=== PATIENT | female | born 1995 | race Caucasian/White ===

== ENCOUNTER 2018-11-05 11:11 | Inpatient (IN) | payer BC ==
[~2018-11-05] VITALS: Ht 162.6 cm; Wt 89.4 kg
[2018-11-05] MEDS ORDERED: OLAN5TAB2 PO (11:19)
[2018-11-05] MEDS ORDERED: HALO5TAB2 PO (11:19)
[2018-11-05] MEDS ORDERED: ESCI10TA PO (11:19)
[2018-11-05] MEDS ORDERED: CLON-570 PO (11:19)
[2018-11-05] MEDS ORDERED: ACET-2247 PO (11:19)
[2018-11-05] MEDS ORDERED: LORA0.5T2 PO (11:19)
[2018-11-05] MEDS ORDERED: ZOLP10TA7 PO (11:19)
[2018-11-05] MEDS ORDERED: SODIUM CHLORIDE 0.9% 1,000 ML IV ONE ×3 (11:26→20:15)
[2018-11-05 12:20] LABS: GLUCOSE, URINE (UA) NEGATIVE (NEGATIVE); KETONES,URINE >=80 mg/dL (NEGATIVE); LEUKOCYTE ESTERASE ,URINE NEGATIVE (NEGATIVE); NITRATE,URINE NEGATIVE (NEGATIVE); PH,URINE 5.5 (5.0-8.0); PROTEIN,URINE POS 1+ (NEGATIVE)
[2018-11-05 12:48] LABS: APPEARANCE,URINE HAZY (CLEAR); BILIRUBIN,URINE PRELIM. POSITIVE (NEGATIVE); OCCULT BLOOD,URINE SMALL (NEGATIVE)
[2018-11-05 12:49] LABS: BACTERIA,URINE None Seen /HPF (None Seen); SQUAMOUS EPITHELIAL CELL,UR Few /LPF (None Seen); WBC,URINE 0-2 /HPF (0-5)
[2018-11-05] MEDS ORDERED: LORazepam 2 MG/ML VIAL IM ONE (14:30)
[2018-11-05 15:06] LABS: BASOPHILS % (AUTO) 0.6 % (0.0-2.0); EOSINOPHILS % (AUTO) 0.2 % (1.0-6.0); HEMATOCRIT 42.4 % (36-46); HEMOGLOBIN 14.2 g/dL (12.0-16.0); LYMPHOCYTES # (AUTO) 1.5 K/uL (1.0-4.8); LYMPHOCYTES % (AUTO) 8.8 % (22.0-44.0); MEAN CORPUSCULAR HEMOGLOBIN 29.9 pg (26.0-34.0); MEAN CORPUSCULAR HGB CONC 33.4 G/dL (31.0-37.0); MEAN CORPUSCULAR VOLUME 90 fL (80-100); MONOCYTES # (AUTO) 1.3 K/uL (0.1-1.0); MONOCYTES % (AUTO) 7.6 % (2.0-9.0); NEUTROPHILS # (AUTO) 13.7 K/uL (1.8-7.7); NEUTROPHILS % (AUTO) 82.8 % (40.0-70.0); PLATELET COUNT (AUTO) 319 K/uL (150-450); RED BLOOD CELL COUNT(AUTO) 4.73 MIL/uL (4.00-5.20); RED CELL DISTRIBUTION WIDTH 14.3 % (11.5-14.5)
[2018-11-05 15:29] LABS: ALANINE AMINOTRANSFERASE 31 U/L (12-78); ALBUMIN 4.6 g/dL (3.4-5.0); ALKALINE PHOSPHATASE 72 U/L (46-116); ANION GAP 17 mmol/L (8-16); ASPARTATE AMINOTRANSFERASE 31 U/L (15-37); BILIRUBIN,TOTAL 1.8 mg/dL (0.1-1.0); CALCIUM, TOTAL 10.3 mg/dL (8.8-10.5); CARBON DIOXIDE 26 mmol/L (22-29); CHLORIDE 102 mmol/L (98-107); CREATININE 0.98 mg/dL (0.60-1.30); GLOMERULAR FILTR. RATE CALC > 60 mL/min (>60); GLUCOSE,RANDOM 82 mg/dL (70-110); HCG,QUANTITATIVE < 1 mIU/mL (0-6); LIPASE 115 U/L (73-393); POTASSIUM 4.1 mmol/L (3.5-5.1); SODIUM SERUM 145 mmol/L (136-145); TOTAL PROTEIN, SERUM 8.9 g/dL (6.4-8.2); UREA NITROGEN, BLOOD 26 mg/dL (7-18)
[2018-11-05] MEDS ORDERED: 0.9% SODIUM CHLORIDE 10 ML SYRINGE IVP PRN (16:30)
[2018-11-05] MEDS ORDERED: ACETAMINOPHEN 325 MG TABLET PO PRN ×2 (16:30→20:15)
[2018-11-05 16:56] LABS: LACTIC ACID 1.8 mmol/L (0.4-2.0)
[2018-11-05] MEDS ORDERED: MAGNESIUM HYDROXIDE SUSPENSION 30 ML UDCUP PO PRN (20:15)
[2018-11-05] MEDS: DOCUSATE SODIUM 100 MG CAPSULE PO SCH (21:00)
[2018-11-06 05:22] LABS: BASOPHILS % (AUTO) 0.2 % (0.0-2.0); EOSINOPHILS % (AUTO) 0.8 % (1.0-6.0); HEMATOCRIT 38.3 % (36-46); HEMOGLOBIN 12.5 g/dL (12.0-16.0); LYMPHOCYTES # (AUTO) 1.2 K/uL (1.0-4.8); LYMPHOCYTES % (AUTO) 12.8 % (22.0-44.0); MEAN CORPUSCULAR HEMOGLOBIN 29.7 pg (26.0-34.0); MEAN CORPUSCULAR HGB CONC 32.7 G/dL (31.0-37.0); MEAN CORPUSCULAR VOLUME 91 fL (80-100); MONOCYTES # (AUTO) 0.8 K/uL (0.1-1.0); MONOCYTES % (AUTO) 7.8 % (2.0-9.0); NEUTROPHILS # (AUTO) 7.6 K/uL (1.8-7.7); NEUTROPHILS % (AUTO) 78.4 % (40.0-70.0); PLATELET COUNT (AUTO) 255 K/uL (150-450); RED BLOOD CELL COUNT(AUTO) 4.22 MIL/uL (4.00-5.20); RED CELL DISTRIBUTION WIDTH 13.7 % (11.5-14.5)
[2018-11-06] MEDS: LORazepam 2 MG/ML VIAL IVP PRN ×5 (06:49→20:54)
[2018-11-06] MEDS: DOCUSATE SODIUM 100 MG CAPSULE PO SCH ×2 (09:00→21:00)
[2018-11-06 09:04] VITALS: BP 129/87
[2018-11-06 12:29] VITALS: BP 123/72
[2018-11-06] MEDS: DEXTROSE 5%-0.45% SODIUM CHL 1,000 ML IV SCH (13:24)
[2018-11-06 16:23] VITALS: BP 132/85
[2018-11-06 20:36] VITALS: BP 144/78
[2018-11-07 00:51] VITALS: BP 151/88
[2018-11-07] MEDS: DEXTROSE 5%-0.45% SODIUM CHL 1,000 ML IV SCH (04:55)
[2018-11-07 05:34] VITALS: BP 141/86
[2018-11-07 07:51] VITALS: BP 132/79
[2018-11-07] MEDS: DOCUSATE SODIUM 100 MG CAPSULE PO SCH ×2 (08:35→21:00)
[2018-11-07] MEDS ORDERED: OLANZapine 5 MG TABLET PO SCH (09:15)
[2018-11-07] MEDS: LORazepam 2 MG/ML VIAL IVP PRN (11:06)
[2018-11-07] MEDS: OLANZapine 5 MG RAPDIS TABLET PO SCH ×2 (11:17→20:37)
[2018-11-07 12:04] VITALS: BP 139/78
[2018-11-07 15:49] VITALS: BP 130/79
[2018-11-07 19:54] VITALS: BP 133/84
[2018-11-08] MEDS: DEXTROSE 5%-0.45% SODIUM CHL 1,000 ML IV SCH ×2 (00:56→14:46)
[2018-11-08 05:10] VITALS: BP 123/78
[2018-11-08] MEDS: DOCUSATE SODIUM 100 MG CAPSULE PO SCH ×2 (09:00→20:32)
[2018-11-08 09:43] VITALS: BP 125/80
[2018-11-08] MEDS: OLANZapine 5 MG RAPDIS TABLET PO SCH ×2 (09:46→20:29)
[2018-11-08] MEDS: LORazepam 2 MG/ML VIAL IVP PRN ×3 (10:02→18:45)
[2018-11-08 13:13] VITALS: BP 116/66
[2018-11-08 16:00] VITALS: BP 120/73
[2018-11-08 19:30] VITALS: BP 121/73
[2018-11-09 00:30] VITALS: BP 115/90
[2018-11-09] MEDS: DEXTROSE 5%-0.45% SODIUM CHL 1,000 ML IV SCH ×2 (06:29→20:09)
[2018-11-09] MEDS: LORazepam 2 MG/ML VIAL IVP PRN ×2 (06:35→11:31)
[2018-11-09] MEDS: OLANZapine 5 MG RAPDIS TABLET PO SCH ×3 (08:45→21:18)
[2018-11-09 08:56] VITALS: BP 122/88
[2018-11-09] MEDS: DOCUSATE SODIUM 100 MG CAPSULE PO SCH ×2 (09:00→21:00)
[2018-11-09 11:20] VITALS: BP 122/72
[2018-11-09 15:32] VITALS: BP 102/59
[2018-11-09 20:30] VITALS: BP 114/62
[2018-11-10] VITALS (7 sets, daily range): BP systolic 119–143; BP diastolic 61–89
[2018-11-10] MEDS: DOCUSATE SODIUM 100 MG CAPSULE PO SCH ×2 (09:00→20:22)
[2018-11-10] MEDS: OLANZapine 5 MG RAPDIS TABLET PO SCH ×2 (09:06→19:52)
[2018-11-10 15:44] LABS: ANION GAP 10 mmol/L (8-16); CALCIUM, TOTAL 9.6 mg/dL (8.8-10.5); CARBON DIOXIDE 28 mmol/L (22-29); CHLORIDE 103 mmol/L (98-107); CREATININE 0.67 mg/dL (0.60-1.30); GLOMERULAR FILTR. RATE CALC > 60 mL/min (>60); GLUCOSE,RANDOM 87 mg/dL (70-110); SODIUM SERUM 141 mmol/L (136-145); UREA NITROGEN, BLOOD 5 mg/dL (7-18)
[2018-11-10 15:46] LABS: BASOPHILS % (AUTO) 0.5 % (0.0-2.0); EOSINOPHILS % (AUTO) 0.7 % (1.0-6.0); HEMATOCRIT 42.1 % (36-46); LYMPHOCYTES # (AUTO) 0.8 K/uL (1.0-4.8); LYMPHOCYTES % (AUTO) 11.7 % (22.0-44.0); MEAN CORPUSCULAR HEMOGLOBIN 29.8 pg (26.0-34.0); MEAN CORPUSCULAR HGB CONC 33.3 G/dL (31.0-37.0); MEAN CORPUSCULAR VOLUME 90 fL (80-100); MONOCYTES # (AUTO) 0.5 K/uL (0.1-1.0); NEUTROPHILS # (AUTO) 5.7 K/uL (1.8-7.7); NEUTROPHILS % (AUTO) 80.1 % (40.0-70.0); PLATELET COUNT (AUTO) 286 K/uL (150-450); RED CELL DISTRIBUTION WIDTH 13.8 % (11.5-14.5)
[2018-11-10] MEDS: DEXTROSE 5%-0.45% SODIUM CHL 1,000 ML IV SCH ×2 (16:29→22:38)
[2018-11-11 07:32] VITALS: BP 116/67
[2018-11-11] MEDS: DOCUSATE SODIUM 100 MG CAPSULE PO SCH ×2 (09:00→21:19)
[2018-11-11] MEDS: OLANZapine 5 MG RAPDIS TABLET PO SCH (09:00)
[2018-11-11] MEDS ORDERED: ZOLPIDEM TARTRATE 5 MG TABLET PO PRN (10:00)
[2018-11-11] MEDS: ESCITALOPRAM OXALATE 10 MG TABLET PO SCH ×2 (10:15→19:30)
[2018-11-11] MEDS: OLANZapine 10 MG TABLET PO SCH ×2 (11:45→21:19)
[2018-11-11 15:02] VITALS: BP 116/70
[2018-11-11] MEDS: DEXTROSE 5%-0.45% SODIUM CHL 1,000 ML IV SCH (16:14)
[2018-11-11] MEDS: LORazepam 2 MG/ML VIAL IVP PRN (18:12)
[2018-11-11 20:00] VITALS: BP 127/85
[2018-11-11 23:40] VITALS: BP 114/71
[2018-11-12 04:45] VITALS: BP 131/87
[2018-11-12 09:18] VITALS: BP 121/70
[2018-11-12] MEDS: DOCUSATE SODIUM 100 MG CAPSULE PO SCH ×2 (09:24→20:01)
[2018-11-12] MEDS: ESCITALOPRAM OXALATE 10 MG TABLET PO SCH (09:24)
[2018-11-12] MEDS: OLANZapine 5 MG TABLET PO SCH (09:24)
[2018-11-12 11:15] VITALS: BP 119/61
[2018-11-12 15:37] VITALS: BP 128/76
[2018-11-12] MEDS: LORazepam 1 MG TABLET PO PRN (17:45)
[2018-11-12 19:18] VITALS: BP 120/70
[2018-11-12] MEDS: OLANZapine 10 MG TABLET PO SCH (20:01)
[2018-11-13 04:57] VITALS: BP 138/83
[2018-11-13 08:20] VITALS: BP 105/77
[2018-11-13] MEDS: DEXTROSE 5%-0.45% SODIUM CHL 1,000 ML IV SCH (08:43)
[2018-11-13] MEDS: LORazepam 2 MG/ML VIAL IVP PRN ×2 (08:43→17:14)
[2018-11-13] MEDS: OLANZapine 5 MG TABLET PO SCH (08:44)
[2018-11-13] MEDS: DOCUSATE SODIUM 100 MG CAPSULE PO SCH ×2 (08:44→20:01)
[2018-11-13] MEDS: ESCITALOPRAM OXALATE 10 MG TABLET PO SCH (08:44)
[2018-11-13 11:40] VITALS: BP 101/62
[2018-11-13] MEDS: ALPRAZolam 0.25 MG TABLET PO SCH ×2 (12:14→20:01)
[2018-11-13 16:31] VITALS: BP 138/90
[2018-11-13 19:30] VITALS: BP 126/82
[2018-11-13] MEDS: MIRTAZAPINE 15 MG TABLET PO SCH (20:01)
[2018-11-13] MEDS: OLANZapine 10 MG TABLET PO SCH (20:01)
[2018-11-13 23:15] VITALS: BP 121/78
[2018-11-14 03:30] VITALS: BP 126/82
[2018-11-14 04:48] LABS: HIV 1-2 SCREEN 4TH GEN W/RFLX Non Reactive (Non Reactive)
[2018-11-14] MEDS: DEXTROSE 5%-0.45% SODIUM CHL 1,000 ML IV SCH (05:03)
[2018-11-14 08:15] VITALS: BP 125/81
[2018-11-14] MEDS: DOCUSATE SODIUM 100 MG CAPSULE PO SCH ×2 (08:17→20:39)
[2018-11-14] MEDS: ALPRAZolam 0.25 MG TABLET PO SCH ×2 (08:17→20:40)
[2018-11-14] MEDS: ESCITALOPRAM OXALATE 10 MG TABLET PO SCH (08:18)
[2018-11-14] MEDS: OLANZapine 5 MG TABLET PO SCH (08:18)
[2018-11-14] MEDS: LORazepam 1 MG TABLET PO PRN (08:44)
[2018-11-14 11:00] VITALS: BP 118/70
[2018-11-14] MEDS: LORazepam 2 MG/ML VIAL IVP PRN (15:03)
[2018-11-14 19:31] VITALS: BP 116/75
[2018-11-14] MEDS: OLANZapine 10 MG TABLET PO SCH (20:39)
[2018-11-14] MEDS: MIRTAZAPINE 15 MG TABLET PO SCH (20:40)
[2018-11-15] MEDS: DEXTROSE 5%-0.45% SODIUM CHL 1,000 ML IV SCH ×2 (02:41→21:17)
[2018-11-15 04:45] VITALS: BP 119/75
[2018-11-15] MEDS: DOCUSATE SODIUM 100 MG CAPSULE PO SCH ×2 (08:08→19:45)
[2018-11-15] MEDS: ALPRAZolam 0.25 MG TABLET PO SCH (08:20)
[2018-11-15] MEDS: ESCITALOPRAM OXALATE 10 MG TABLET PO SCH (08:21)
[2018-11-15] MEDS: LORazepam 2 MG/ML VIAL IVP PRN (08:21)
[2018-11-15] MEDS: OLANZapine 5 MG TABLET PO SCH (08:21)
[2018-11-15 10:11] VITALS: BP 115/77
[2018-11-15 16:55] VITALS: BP 112/71
[2018-11-15 19:30] VITALS: BP 116/73
[2018-11-15] MEDS: ClonazePAM 0.5 MG TABLET PO SCH (19:44)
[2018-11-15] MEDS: OLANZapine 10 MG TABLET PO SCH (19:44)
[2018-11-15] MEDS: MIRTAZAPINE 15 MG TABLET PO SCH (19:44)
[2018-11-16] VITALS: BP 120/66
[2018-11-16 04:00] VITALS: BP 115/70
[2018-11-16] MEDS: DOCUSATE SODIUM 100 MG CAPSULE PO SCH (09:00)
[2018-11-16] MEDS: ClonazePAM 0.5 MG TABLET PO SCH (09:27)
[2018-11-16] MEDS: OLANZapine 5 MG TABLET PO SCH (09:27)
[2018-11-16] MEDS: ESCITALOPRAM OXALATE 10 MG TABLET PO SCH (09:28)
[2018-11-16 10:30] VITALS: BP 118/80
[2018-11-16] MEDS ORDERED: OLAN15TA2 PO (12:00)
[2018-11-16] MEDS ORDERED: CLON.5 PO (12:02)
[2018-11-16] MEDS ORDERED: MIRT15 PO (12:02)
[2018-11-16 12:05] VITALS: BP 124/85
== END 2018-11-16 12:48 | disposition home or self-care (01) | DRG 641 ==
LOC: EMS 11:11 → 5N 11-06 00:01
PROVIDERS: ADMIT Internal Medicine; ATTEND Internal Medicine
DX: E86.0 Dehydration (principal); F23 Brief psychotic disorder; F32.9 Major depressive disorder, single episode, unspecified; R62.7 Adult failure to thrive; F12.90 Cannabis use, unspecified, uncomplicated; F29 Unspecified psychosis not due to a substance or known physiological condition; F41.9 Anxiety disorder, unspecified; E66.3 Overweight; Z68.33 Body mass index [BMI] 33.0-33.9, adult; Z88.0 Allergy status to penicillin
CPT/HCPCS: 70450; 70551; 74022; 76700; 83605; 84145; 86592; 87389; 96360; 96361; 96372; 99291; G0378; J2060; J7030